=== PATIENT | female | born 1955 | race Caucasian/White ===

== ENCOUNTER 2024-07-12 20:09 | Observation (INO) ==
[2024-07-12] MEDS: Lactated Ringers 1000 ml BAG 1,000 ML IV ONE (20:51)
[2024-07-12 21:08] LABS: ABS Basophils 0.1 10^3/uL (0.0-0.1); ABS Lymphocytes 1.1 10^3/uL (1.0-4.8); ABS Monocytes 1.1 10^3/uL (0.0-0.9); ABS Neutrophils 6.1 10^3/uL (1.5-7.6); ABS Nucleated RBC 0.01 10^3/ul; Eosinophil % 0.4 %; Hematocrit 41.7 % (35-45); Hemoglobin 13.5 g/dL (11.5-14.3); Lymphocyte % 13.4 %; Mean Corpuscular Hemoglobin 28.5 pg (27-33); Mean Corpuscular Hgb Conc 32.3 g/dL (31-36); Mean Corpuscular Volume 88.2 fL (80-97); Mean Platelet Volume 7.7 fL (7.5-11.2); Nucleated Red Blood Cells % 0.1 %/100WBC (0.0-0.8); Platelet Count 357 10^3/uL (150-450); Red Blood Count 4.72 10^6/uL (3.63-4.92); Red Cell Distribution Width 17.7 % (12-17); White Blood Count 8.4 10^3/uL (3.8-11.8)
[2024-07-12 21:17] LABS: INR 1.41 (0.83-1.13)
[2024-07-12 21:52] LABS: Albumin/Globulin Ratio 1.7 (1-3); Calcium 9.2 mg/dL (8.6-10.3); Creatinine, Serum 1.06 mg/dL (0.51-0.95); Globulin 2.3 g/dL (2-4); Potassium 4.1 mmol/L (3.5-5.0); Total Bilirubin 0.4 mg/dL (0.2-1.0); Total Protein 6.3 g/dL (6.4-8.9); eGFR CKD-EPI 56.5 (>60)
[2024-07-12 22:21] LABS: High Sensitivity Troponin 1 Hr 22 pg/mL (<15)
[2024-07-13] MEDS: FLUTICAS/UMECLI/VILANT 200-62.5-25 MDI (NF) INH SCH (07:27)
[2024-07-13 09:31] LABS: Hematocrit 37.8 % (35-45); Hemoglobin 12.4 g/dL (11.5-14.3); Mean Corpuscular Hemoglobin 28.7 pg (27-33); Mean Corpuscular Hgb Conc 32.7 g/dL (31-36); Mean Corpuscular Volume 87.8 fL (80-97); Mean Platelet Volume 7.5 fL (7.5-11.2); Platelet Count 314 10^3/uL (150-450); Red Cell Distribution Width 17.2 % (12-17); White Blood Count 5.6 10^3/uL (3.8-11.8)
[2024-07-13] MEDS: Fluticasone NASAL SPRAY 50MCG 16 gm SPRAY BTL BOTH NARES SCH (09:32)
[2024-07-13 10:09] LABS: Calcium 8.9 mg/dL (8.6-10.3); Creatinine, Serum 0.86 mg/dL (0.51-0.95); Potassium 3.8 mmol/L (3.5-5.0); eGFR CKD-EPI 72.6 (>60)
[2024-07-13 13:18] LABS: High Sensitivity Troponin 1 Hr 16 pg/mL (<15)
[2024-07-13 14:38] VITALS: BP 123/71
== END 2024-07-13 18:25 | disposition home or self-care (01) ==
LOC: ED 20:09 → EDHOLD 20:09 → SUATTDRO 22:46 → MEDTELE 07-13 01:54
PROVIDERS: ADMIT Internal Medicine; ATTEND Family Medicine

== ENCOUNTER 2024-08-15 07:50 | Observation (INO) ==
[2024-08-15 08:15] LABS: ABS Eosinophils 0.3 10^3/uL (0.0-0.5); ABS Lymphocytes 1.4 10^3/uL (1.0-4.8); ABS Monocytes 0.6 10^3/uL (0.0-0.9); Eosinophil % 5.4 %; Hematocrit 43.8 % (35-45); Hemoglobin 14.1 g/dL (11.5-14.3); Lymphocyte % 22.4 %; Mean Corpuscular Hemoglobin 28.5 pg (27-33); Mean Corpuscular Hgb Conc 32.1 g/dL (31-36); Mean Corpuscular Volume 88.6 fL (80-97); Mean Platelet Volume 7.5 fL (7.5-11.2); Platelet Count 360 10^3/uL (150-450); Red Blood Count 4.94 10^6/uL (3.63-4.92); Red Cell Distribution Width 18.2 % (12-17); White Blood Count 6.4 10^3/uL (3.8-11.8)
[2024-08-15] MEDS: Lactated Ringers 1000 ml BAG 1,000 ML IV ONE ×2 (08:21→10:00)
[2024-08-15 08:25] LABS: INR 1.11 (0.85-1.14)
[2024-08-15 09:03] LABS: Albumin 4.3 g/dL (3.2-5.2); Albumin/Globulin Ratio 1.8 (1-3); Calcium 9.2 mg/dL (8.6-10.3); Creatinine, Serum 0.88 mg/dL (0.51-0.95); Globulin 2.4 g/dL (2-4); Potassium 4.2 mmol/L (3.5-5.0); Total Bilirubin 0.4 mg/dL (0.2-1.0); Total Protein 6.7 g/dL (6.4-8.9); eGFR CKD-EPI 70.7 (>60)
[2024-08-15 09:53] LABS: High Sensitivity Troponin 1 Hr 9 pg/mL (<15)
[2024-08-15 10:06] LABS: Urine Appearance Clear; Urine Bilirubin Negative (Negative); Urine Blood Negative (Negative); Urine Color Colorless; Urine Glucose Negative (Negative); Urine Ketones Negative (Negative); Urine Nitrite Negative (Negative); Urine Protein Negative (Negative); Urine Specific Gravity 1.004 (1.002-1.030); Urine Urobilinogen Negative (Negative)
[2024-08-15] MEDS: Metoprolol Tartrate 5 mg VIAL 5 ml VIAL (1 mg/ml) IV ONE ×2 (10:44→11:37)
[2024-08-15 12:21] LABS: High Sensitivity Troponin 3 Hr 8 pg/mL (<15)
[2024-08-15] MEDS: Iohexol 350 (CONTRAST) 500 ML MDV IV ONE (12:29)
[2024-08-15] MEDS: Digoxin IV 0.5 MG/2 ML AMP (0.25 MG/ML) IV SLOW PU ONE (13:04)
[2024-08-15] MEDS ORDERED: Metoprolol Tartrate 5 mg VIAL 5 ml VIAL (1 mg/ml) IV PRN (16:15)
[2024-08-15] MEDS ORDERED: Sulfur Hexaflouride MICROSPHR 25 MG VIAL IV PRN (18:11)
[2024-08-16 06:24] LABS: ABS Eosinophils 0.4 10^3/uL (0.0-0.5); ABS Lymphocytes 1.1 10^3/uL (1.0-4.8); ABS Monocytes 0.7 10^3/uL (0.0-0.9); Hematocrit 37.5 % (35-45); Hemoglobin 11.9 g/dL (11.5-14.3); Mean Corpuscular Hemoglobin 28.2 pg (27-33); Mean Corpuscular Hgb Conc 31.8 g/dL (31-36); Mean Corpuscular Volume 88.6 fL (80-97); Mean Platelet Volume 7.7 fL (7.5-11.2); Nucleated Red Blood Cells % 0.1 %/100WBC (0.0-0.8); Platelet Count 283 10^3/uL (150-450); Red Blood Count 4.23 10^6/uL (3.63-4.92); Red Cell Distribution Width 18.5 % (12-17); White Blood Count 6.2 10^3/uL (3.8-11.8)
[2024-08-16 06:44] LABS: Albumin 3.3 g/dL (3.2-5.2); Albumin/Globulin Ratio 1.7 (1-3); C Reactive Protein 1.35 mg/L (<8.01); Calcium 8.6 mg/dL (8.6-10.3); Creatinine, Serum 0.73 mg/dL (0.51-0.95); Globulin 1.9 g/dL (2-4); HDL Cholesterol 120.6 mg/dL; Magnesium 1.9 mg/dL (1.9-2.7); Phosphorus 4.1 mg/dL (2.5-5.0); Potassium 3.7 mmol/L (3.5-5.0); Total Bilirubin 0.3 mg/dL (0.2-1.0); Total Protein 5.2 g/dL (6.4-8.9); eGFR CKD-EPI 88.4 (>60)
[2024-08-16] MEDS: CMC:FLUTICAS/UMECLI/VILANT 200-62.5-25 MDI (NF) INH SCH (07:41)
[2024-08-17 05:52] LABS: ABS Basophils 0.1 10^3/uL (0.0-0.1); ABS Eosinophils 0.3 10^3/uL (0.0-0.5); ABS Lymphocytes 1.1 10^3/uL (1.0-4.8); ABS Monocytes 0.7 10^3/uL (0.0-0.9); Eosinophil % 4.9 %; Hematocrit 37.8 % (35-45); Hemoglobin 12.2 g/dL (11.5-14.3); Lymphocyte % 17.3 %; Mean Corpuscular Hemoglobin 28.8 pg (27-33); Mean Corpuscular Hgb Conc 32.4 g/dL (31-36); Mean Corpuscular Volume 88.8 fL (80-97); Mean Platelet Volume 7.7 fL (7.5-11.2); Nucleated Red Blood Cells % 0.1 %/100WBC (0.0-0.8); Platelet Count 271 10^3/uL (150-450); Red Blood Count 4.25 10^6/uL (3.63-4.92); Red Cell Distribution Width 17.9 % (12-17); White Blood Count 6.1 10^3/uL (3.8-11.8)
[2024-08-17 06:14] LABS: Calcium 8.6 mg/dL (8.6-10.3); Creatinine, Serum 0.78 mg/dL (0.51-0.95); Potassium 3.7 mmol/L (3.5-5.0); eGFR CKD-EPI 81.7 (>60)
[2024-08-17] MEDS: KCL 20 MEQ/100 ML IVPREMIX 20 MEQ/100 ML BAG IV ONE (08:40)
[2024-08-17] MEDS: Potassium Chloride LIQUID 20 MEQ/15 ML LIQUID PO ONE (09:54)
[2024-08-17 10:56] LABS: Ferritin 13.1 ng/mL (11-307)
[2024-08-17] MEDS ORDERED: Regadenoson 0.4 MG/5 ML SYRINGE ONE (11:05)
[2024-08-17] MEDS ORDERED: Aminophylline 25 MG/ML VIAL ONE (11:05)
[2024-08-17 13:37] VITALS: BP 139/94
== END 2024-08-17 17:42 | disposition home or self-care (01) ==
LOC: ED 07:50 → EDHOLD 07:50 → MEDTELE 16:04
PROVIDERS: ADMIT Internal Medicine; ATTEND Internal Medicine

== ENCOUNTER 2024-10-07 15:18 | Inpatient (IN) ==
[2024-10-07] MEDS: Ondansetron 4 mg VIAL 2 MG/ML 2 ml VIAL IV ONE ×2 (16:04→19:57)
[2024-10-07] MEDS: Lactated Ringers 1000 ml BAG IV.FLUID IV ONE ×3 (16:13→20:00)
[2024-10-07 17:08] LABS: Mean Corpuscular Hemoglobin 28.7 pg (27-33); Mean Corpuscular Hgb Conc 31.2 g/dL (31-36); Mean Corpuscular Volume 91.9 fL (80-97); Mean Platelet Volume 7.4 fL (7.5-11.2); Platelet Count 255 10^3/uL (150-450); Red Blood Count 3.15 10^6/uL (3.63-4.92); Red Cell Distribution Width 16.5 % (12-17); White Blood Count 22.5 10^3/uL (3.8-11.8)
[2024-10-07 17:26] LABS: INR 1.33 (0.85-1.14)
[2024-10-07 17:39] LABS: Albumin 3.4 g/dL (3.2-5.2); Calcium 8.3 mg/dL (8.6-10.3); Creatinine, Serum 1.7 mg/dL (0.51-0.95); Globulin 1.7 g/dL (2-4); Potassium 5.8 mmol/L (3.5-5.0); Total Bilirubin 0.5 mg/dL (0.2-1.0); Total Protein 5.1 g/dL (6.4-8.9); eGFR CKD-EPI 32.1 (>60)
[2024-10-07 17:44] LABS: ABS Basophils 0.1 10^3/uL (0.0-0.1); ABS Lymphocytes 0.5 10^3/uL (1.0-4.8); ABS Monocytes 1.3 10^3/uL (0.0-0.9); ABS Neutrophils 20.6 10^3/uL (1.5-7.6); ABS Nucleated RBC 0.01 10^3/ul; Eosinophil % 0.1 %; Lymphocyte % 2.1 %
[2024-10-07] MEDS: Piperacillin/Tazobac 3.375 BAG 3.375 GM/100 ML BAG IV ONE (18:22)
[2024-10-07 18:47] LABS: High Sensitivity Troponin 1 Hr 313 pg/mL (<15)
[2024-10-07 19:15] LABS: Urine Appearance Clear; Urine Bilirubin Negative (Negative); Urine Blood Negative (Negative); Urine Color Light-Yellow; Urine Glucose Negative (Negative); Urine Ketones Negative (Negative); Urine Nitrite Negative (Negative); Urine Protein Negative (Negative); Urine Specific Gravity 1.008 (1.002-1.030); Urine Urobilinogen Negative (Negative)
[2024-10-07] MEDS: Morphine 4 MG/ML VIAL (1 ml) IV ONE (19:56)
[2024-10-07] MEDS: Vancomycin 1,000 MG in NS 0.9% 250 ml 250 ML IVPB ONE (20:12)
[2024-10-07 21:52] LABS: Calcium 7.5 mg/dL (8.6-10.3); Creatinine, Serum 1.78 mg/dL (0.51-0.95); Potassium 5.8 mmol/L (3.5-5.0); eGFR CKD-EPI 30.3 (>60)
[2024-10-07 21:56] LABS: Albumin/Globulin Ratio 2.1 (1-3); Globulin 1.4 g/dL (2-4); Total Bilirubin 0.8 mg/dL (0.2-1.0); Total Protein 4.4 g/dL (6.4-8.9)
[2024-10-07] MEDS ORDERED: Sulfur Hexaflouride MICROSPHR 25 MG VIAL IV PRN (22:44)
[2024-10-07 22:46] LABS: High Sensitivity Troponin 1 Hr 317 pg/mL (<15)
[2024-10-07 23:51] LABS: TSH Ultra Thyroid Stim Horm 6.21 mcIU/mL (0.34-5.60)
[2024-10-07] MEDS: SODIUM ZIRCONIUM CYCLOSILICATE 10 GM PACKET PO ONE (23:52)
[2024-10-07] MEDS: CALCIUM GLUCONATE 1GM/50ML NS 1 GM/50 ML BAG IV ONE (23:56)
[2024-10-08] MEDS: fentaNYL 100 mcg/2 ml 50 MCG/ML VIAL IV SLOW PU PRN (00:13)
[2024-10-08] MEDS: Ondansetron 4 mg VIAL 2 MG/ML 2 ml VIAL IV PRN ×2 (00:21→09:09)
[2024-10-08 01:50] LABS: Free T4 1.53 ng/dL (0.61-1.12)
[2024-10-08 03:30] LABS: Calcium 7.7 mg/dL (8.6-10.3); Creatinine, Serum 2.18 mg/dL (0.51-0.95); Potassium 5.9 mmol/L (3.5-5.0); eGFR CKD-EPI 23.8 (>60)
[2024-10-08 03:47] LABS: ABS Lymphocytes 0.4 10^3/uL (1.0-4.8); ABS Neutrophils 13.6 10^3/uL (1.5-7.6); ABS Nucleated RBC 0.01 10^3/ul; Eosinophil % 0.1 %; Hematocrit 25.7 % (35-45); Hemoglobin 8.1 g/dL (11.5-14.3); Lymphocyte % 2.6 %; Mean Corpuscular Hemoglobin 28.4 pg (27-33); Mean Corpuscular Hgb Conc 31.7 g/dL (31-36); Mean Corpuscular Volume 89.7 fL (80-97); Mean Platelet Volume 8.5 fL (7.5-11.2); Platelet Count 237 10^3/uL (150-450); Red Blood Count 2.86 10^6/uL (3.63-4.92); Red Cell Distribution Width 16.3 % (12-17)
[2024-10-08 03:57] LABS: Albumin 3.1 g/dL (3.2-5.2); Albumin/Globulin Ratio 2.2 (1-3); Globulin 1.4 g/dL (2-4); Magnesium 1.9 mg/dL (1.9-2.7); Total Bilirubin 0.9 mg/dL (0.2-1.0); Total Protein 4.5 g/dL (6.4-8.9)
[2024-10-08] MEDS: Dextrose 50% Syringe 50 ml 25 GM/50 ML SYRINGE IV PUSH ONE ×2 (05:35→12:48)
[2024-10-08] MEDS: Lactated Ringers 1000 ml BAG 1,000 ML IV SCH (05:48)
[2024-10-08 07:52] LABS: C Reactive Protein 29.09 mg/L (<8.01)
[2024-10-08] MEDS ORDERED: Rosuvastatin 40 mg TAB (NF) PO SCH (09:00)
[2024-10-08] MEDS: cefTRIAXone 1 gm/50 mL D5W 1 GM/50 ML BAG IV SCH (09:35)
[2024-10-08] MEDS: HYDROmorphone 0.5 MG/0.5 ML SYRINGE IV SLOW PU PRN (10:35)
[2024-10-08] MEDS ORDERED: cefTRIAXone 1 gm/50 mL D5W 1 GM/50 ML BAG IV SCH (11:00)
[2024-10-08] MEDS: Fluticasone NASAL SPRAY 50MCG 16 gm SPRAY BTL BOTH NARES SCH (11:25)
[2024-10-08 11:55] LABS: Calcium 7.5 mg/dL (8.6-10.3); Creatinine, Serum 2.69 mg/dL (0.51-0.95); Potassium 6.3 mmol/L (3.5-5.0); eGFR CKD-EPI 18.5 (>60)
[2024-10-08] MEDS: SODIUM ZIRCONIUM CYCLOSILICATE 10 GM PACKET PO ONE (12:14)
[2024-10-08] MEDS: Furosemide 40 mg/4 ml IV VIAL IV ONE (14:20)
[2024-10-08] MEDS: Prochlorperazine 5 mg/ml 2 ml VIAL (10 mg) IV PRN (14:32)
[2024-10-08] MEDS: FLUTICAS/UMECLI/VILANT 200-62.5-25 MDI (NF) INH SCH (14:37)
[2024-10-08 17:16] LABS: Hematocrit 22.6 % (35-45); Hemoglobin 7.2 g/dL (11.5-14.3); Mean Corpuscular Hemoglobin 28.9 pg (27-33); Mean Corpuscular Volume 90.1 fL (80-97); Mean Platelet Volume 8.5 fL (7.5-11.2); Platelet Count 217 10^3/uL (150-450); Red Cell Distribution Width 16.1 % (12-17); White Blood Count 16.4 10^3/uL (3.8-11.8)
[2024-10-08 17:57] LABS: Calcium 7.6 mg/dL (8.6-10.3); Creatinine, Serum 3.21 mg/dL (0.51-0.95); Potassium 5.9 mmol/L (3.5-5.0)
[2024-10-08 18:16] LABS: Albumin 2.8 g/dL (3.2-5.2); Albumin/Globulin Ratio 1.8 (1-3); Globulin 1.6 g/dL (2-4); Total Bilirubin 0.5 mg/dL (0.2-1.0); Total Protein 4.4 g/dL (6.4-8.9)
[2024-10-08] MEDS: Sodium Polystyrene ORAL.SUSP 15 GM/60 ML BTL PO ONE (18:19)
[2024-10-08 22:46] LABS: Calcium 7.4 mg/dL (8.6-10.3); Creatinine, Serum 3.56 mg/dL (0.51-0.95); eGFR CKD-EPI 13.2 (>60)
[2024-10-09] MEDS: Dextrose 50% Syringe 50 ml 25 GM/50 ML SYRINGE IV PUSH ONE
[2024-10-09] MEDS: Dextrose 50% Syringe 50 ml 25 GM/50 ML SYRINGE ONE (00:03)
[2024-10-09] MEDS: Calcium Gluconate 1 GM/10 ML VIAL (in Pyxis) IV PUSH ONE (00:54)
[2024-10-09] MEDS: Sodium Polystyrene ORAL.SUSP 15 GM/60 ML BTL PO ONE ×2 (00:54→11:07)
[2024-10-09 04:38] LABS: Hematocrit 21.9 % (35-45); Hemoglobin 7.1 g/dL (11.5-14.3); Mean Corpuscular Hemoglobin 28.9 pg (27-33); Mean Corpuscular Hgb Conc 32.4 g/dL (31-36); Mean Platelet Volume 8.6 fL (7.5-11.2); Platelet Count 200 10^3/uL (150-450); Red Blood Count 2.46 10^6/uL (3.63-4.92); Red Cell Distribution Width 16.4 % (12-17)
[2024-10-09 05:10] LABS: Calcium 7.5 mg/dL (8.6-10.3); Creatinine, Serum 3.9 mg/dL (0.51-0.95); Magnesium 1.9 mg/dL (1.9-2.7); Potassium 5.2 mmol/L (3.5-5.0); eGFR CKD-EPI 11.8 (>60)
[2024-10-09 05:46] LABS: ABS Lymphocytes 0.9 10^3/uL (1.0-4.8); ABS Monocytes 1.3 10^3/uL (0.0-0.9); ABS Neutrophils 12.7 10^3/uL (1.5-7.6); ABS Nucleated RBC 0.02 10^3/ul; Anisocytosis 1+; Eosinophil % 0.2 %; Lymphocyte % 5.9 %; Nucleated Red Blood Cells % 0.1 %/100WBC (0.0-0.8)
[2024-10-09] MEDS ORDERED: Heparin 5000 UNITS/ML 1 mL VIAL SUBCUT SCH (09:00)
[2024-10-09] MEDS: Heparin 5000 UNITS/ML 1 mL VIAL SUBCUT SCH (09:04)
[2024-10-09 16:49] LABS: Hemoglobin 6.3 g/dL (11.5-14.3)
[2024-10-09 16:50] LABS: Hematocrit 19.8 % (35-45); Mean Corpuscular Hemoglobin 28.5 pg (27-33); Mean Corpuscular Hgb Conc 32.1 g/dL (31-36); Mean Corpuscular Volume 88.7 fL (80-97); Mean Platelet Volume 8.2 fL (7.5-11.2); Platelet Count 203 10^3/uL (150-450); Red Blood Count 2.23 10^6/uL (3.63-4.92); Red Cell Distribution Width 16.4 % (12-17); White Blood Count 12.2 10^3/uL (3.8-11.8)
[2024-10-09 17:16] LABS: Anion Gap 17 mmol/L (2-16); Blood Urea Nitrogen 66 mg/dL (6-24); CO2 Carbon Dioxide 21 mmol/L (22-32); Calcium 6.5 mg/dL (8.6-10.3); Chloride 95 mmol/L (101-111); Creatinine, Serum 4.74 mg/dL (0.51-0.95); Glucose 115 mg/dL (70-100); Potassium 4.7 mmol/L (3.5-5.0); Sodium 133 mmol/L (135-145); eGFR CKD-EPI 9.4 (>60)
[2024-10-09 17:25] LABS: Immature Retic Fraction 0.61
[2024-10-09 17:26] LABS: % Iron Saturation 8 % (15-55); .Transferrin 185 mg/dL (203-362); Iron < 20 ug/dL (50-212); LDH 385 U/L (140-271); Total Iron Binding Capacity 259 mcg/dL (250-450); Unsaturated Iron Binding 239 ug/dL
[2024-10-09 17:46] LABS: Ferritin 144.7 ng/mL (11-307)
[2024-10-09 17:47] LABS: Corrected Retic Count 1.5 % (0.5-2.2); Hematocrit for Retic CNT 19.8 % (35-45); RBC Retic Count 2.23 10^6/ul (3.63-4.92)
[2024-10-09] MEDS: Senna TAB 8.6 mg TAB PO PRN (20:18)
[2024-10-09] MEDS: Ferric Gluconate IV 250 MG in NS 0.9% 250 ml 200 ML IVPB SCH (20:19)
[2024-10-09] MEDS: Polyethylene Glycol 3350 17 GM PACKET PO SCH (20:30)
[2024-10-10 01:58] LABS: Hematocrit 23.6 % (35-45); Hemoglobin 7.6 g/dL (11.5-14.3); Red Blood Count 2.65 10^6/uL (3.63-4.92); White Blood Count 13.1 10^3/uL (3.8-11.8)
[2024-10-10 01:59] LABS: Mean Corpuscular Hemoglobin 28.8 pg (27-33); Mean Corpuscular Hgb Conc 32.3 g/dL (31-36); Mean Corpuscular Volume 89.1 fL (80-97); Mean Platelet Volume 8.4 fL (7.5-11.2); Platelet Count 179 10^3/uL (150-450); Red Cell Distribution Width 15.8 % (12-17)
[2024-10-10 02:11] LABS: Creatinine, Serum 5.06 mg/dL (0.51-0.95); Potassium 4.6 mmol/L (3.5-5.0); eGFR CKD-EPI 8.7 (>60)
[2024-10-10 02:12] LABS: Calcium 6.2 mg/dL (8.6-10.3)
[2024-10-10] MEDS: CALCIUM GLUCONATE 1GM/50ML NS 1 GM/50 ML BAG IV SCH (02:44)
[2024-10-10 06:13] LABS: Hematocrit 23.1 % (35-45); Hemoglobin 7.6 g/dL (11.5-14.3); Mean Corpuscular Hemoglobin 29.5 pg (27-33); Mean Corpuscular Hgb Conc 32.8 g/dL (31-36); Mean Platelet Volume 8.3 fL (7.5-11.2); Platelet Count 175 10^3/uL (150-450); Red Blood Count 2.57 10^6/uL (3.63-4.92); Red Cell Distribution Width 15.8 % (12-17); White Blood Count 11.2 10^3/uL (3.8-11.8)
[2024-10-10 07:03] LABS: Albumin 2.5 g/dL (3.2-5.2); Albumin/Globulin Ratio 1.5 (1-3); Calcium 6.4 mg/dL (8.6-10.3); Creatinine, Serum 5.33 mg/dL (0.51-0.95); Globulin 1.7 g/dL (2-4); Magnesium 1.8 mg/dL (1.9-2.7); Potassium 4.4 mmol/L (3.5-5.0); Total Bilirubin 0.3 mg/dL (0.2-1.0); Total Protein 4.2 g/dL (6.4-8.9); eGFR CKD-EPI 8.1 (>60)
[2024-10-10 09:31] LABS: ABS Eosinophils 0.1 10^3/uL (0.0-0.5); ABS Lymphocytes 0.7 10^3/uL (1.0-4.8); ABS Neutrophils 9.4 10^3/uL (1.5-7.6); ABS Nucleated RBC 0.02 10^3/ul; Anisocytosis 1+; Eosinophil % 0.5 %; Lymphocyte % 6.3 %; Macrocytosis 2+; Nucleated Red Blood Cells % 0.2 %/100WBC (0.0-0.8)
[2024-10-10] MEDS: Bumetanide IV 0.25 MG/ML 4 ml VIAL (1 mg) IV SLOW PU ONE (11:20)
[2024-10-10] MEDS: Calcium Gluconate 2 GM in NS 0.9% 100 ml BAG 100 ML IVPB ONE (11:54)
[2024-10-10] MEDS: HYDROmorphone 1 MG/1 ML SYRINGE IV SLOW PU PRN (17:39)
[2024-10-11 00:45] LABS: Hematocrit 24.6 % (35-45); Hemoglobin 8.2 g/dL (11.5-14.3)
[2024-10-11 08:58] LABS: Hematocrit 25.9 % (35-45); Hemoglobin 8.6 g/dL (11.5-14.3); Mean Corpuscular Hemoglobin 29.9 pg (27-33); Mean Corpuscular Hgb Conc 33.1 g/dL (31-36); Mean Corpuscular Volume 90.4 fL (80-97); Mean Platelet Volume 8.3 fL (7.5-11.2); Platelet Count 201 10^3/uL (150-450); Red Blood Count 2.87 10^6/uL (3.63-4.92); Red Cell Distribution Width 16.4 % (12-17); White Blood Count 10.5 10^3/uL (3.8-11.8)
[2024-10-11 09:25] LABS: Albumin 2.6 g/dL (3.2-5.2); Albumin/Globulin Ratio 1.4 (1-3); Calcium 6.2 mg/dL (8.6-10.3); Creatinine, Serum 6.15 mg/dL (0.51-0.95); Globulin 1.9 g/dL (2-4); Magnesium 1.9 mg/dL (1.9-2.7); Potassium 5.1 mmol/L (3.5-5.0); Total Bilirubin 0.4 mg/dL (0.2-1.0); Total Protein 4.5 g/dL (6.4-8.9); eGFR CKD-EPI 6.9 (>60)
[2024-10-11] MEDS ORDERED: Polyethylene Glycol 3350 17 GM PACKET PO PRN (09:41)
[2024-10-11 10:23] LABS: ABS Eosinophils 0.1 10^3/uL (0.0-0.5); ABS Lymphocytes 0.7 10^3/uL (1.0-4.8); ABS Monocytes 0.1 10^3/uL (0.0-0.9); ABS Neutrophils 9.6 10^3/uL (1.5-7.6); ABS Nucleated RBC 0.21 10^3/ul; Eosinophil % 0.6 %; Large Platelets Present; Lymphocyte % 6.7 %; Polychromasia 1+
[2024-10-11 11:36] LABS: Phosphorus 12.5 mg/dL (2.5-5.0)
[2024-10-11] MEDS: Bumetanide IV 0.25 MG/ML 4 ml VIAL (1 mg) IV SLOW PU ONE ×3 (12:25→19:51)
[2024-10-11] MEDS: Albuterol HFA INHALER 8 gm MDI INH PRN (13:23)
[2024-10-11] MEDS ORDERED: Bumetanide IV 0.25 MG/ML 4 ml VIAL (1 mg) IV SLOW PU ONE (18:07)
[2024-10-11 20:48] LABS: Hematocrit 24.8 % (35-45); Mean Corpuscular Hemoglobin 29.3 pg (27-33); Mean Corpuscular Hgb Conc 32.4 g/dL (31-36); Mean Corpuscular Volume 90.6 fL (80-97); Mean Platelet Volume 8.1 fL (7.5-11.2); Platelet Count 194 10^3/uL (150-450); Red Blood Count 2.74 10^6/uL (3.63-4.92); Red Cell Distribution Width 16.4 % (12-17); White Blood Count 15.3 10^3/uL (3.8-11.8)
[2024-10-11 21:45] LABS: Albumin 2.5 g/dL (3.2-5.2); Albumin/Globulin Ratio 1.3 (1-3); Calcium 6.3 mg/dL (8.6-10.3); Creatinine, Serum 6.3 mg/dL (0.51-0.95); Globulin 1.9 g/dL (2-4); Magnesium 1.9 mg/dL (1.9-2.7); Potassium 5.3 mmol/L (3.5-5.0); Total Bilirubin 0.4 mg/dL (0.2-1.0); Total Protein 4.4 g/dL (6.4-8.9); eGFR CKD-EPI 6.7 (>60)
[2024-10-11] MEDS ORDERED: Dextrose 50% Syringe 50 ml 25 GM/50 ML SYRINGE PRN (22:18)
[2024-10-11 22:23] LABS: Venous Bicarbonate HCO3 17.4 mmol/L (24-28)
[2024-10-11] MEDS: Dextrose 50% Syringe 50 ml 25 GM/50 ML SYRINGE PRN (22:28)
[2024-10-11] MEDS: Dextrose 50% Syringe 50 ml 25 GM/50 ML SYRINGE ONE (22:31)
[2024-10-11] MEDS: Sodium Bicarbonate 8.4% SYR 50 ml SYRINGE IV ONE (23:19)
[2024-10-12] MEDS: Bumetanide 10 MG/40 ML IV DRIP IV SCH (00:25)
[2024-10-12] MEDS: Bumetanide IV 10 MG in Premix IV 0 ML IV SCH (04:24)
[2024-10-12 04:34] LABS: Hematocrit 21.8 % (35-45); Hemoglobin 7.2 g/dL (11.5-14.3); Mean Corpuscular Hemoglobin 29.6 pg (27-33); Mean Corpuscular Hgb Conc 33.1 g/dL (31-36); Mean Corpuscular Volume 89.4 fL (80-97); Mean Platelet Volume 8.6 fL (7.5-11.2); Platelet Count 182 10^3/uL (150-450); Red Blood Count 2.44 10^6/uL (3.63-4.92); Red Cell Distribution Width 16.7 % (12-17); White Blood Count 22.4 10^3/uL (3.8-11.8)
[2024-10-12 04:50] LABS: ABS Lymphocytes 0.5 10^3/uL (1.0-4.8); ABS Neutrophils 21.8 10^3/uL (1.5-7.6); ABS Nucleated RBC 0.08 10^3/ul; Anisocytosis 1+; Eosinophil % 0.1 %; Lymphocyte % 2.3 %; Nucleated Red Blood Cells % 0.4 %/100WBC (0.0-0.8); Polychromasia 1+; Toxic Granulation 1+
[2024-10-12 05:13] LABS: Albumin 2.2 g/dL (3.2-5.2); Albumin/Globulin Ratio 1.2 (1-3); Calcium 6.5 mg/dL (8.6-10.3); Creatinine, Serum 6.46 mg/dL (0.51-0.95); Globulin 1.8 g/dL (2-4); Magnesium 1.9 mg/dL (1.9-2.7); Potassium 5.1 mmol/L (3.5-5.0); Total Bilirubin 0.3 mg/dL (0.2-1.0); eGFR CKD-EPI 6.5 (>60)
[2024-10-12] MEDS: Sodium Chloride 3% HYPERTONIC 120 ML IV ONE (10:03)
[2024-10-12] MEDS: D10W 1000 ml BAG 1,000 ML IV SCH ×2 (10:16→10:51)
[2024-10-12] MEDS: Clindamycin 600 MG/D5W BAG 600 MG/50 ML BAG IV ONE (10:26)
[2024-10-12] MEDS ORDERED: Midazolam 5 mg/5 ml VIAL 1 mg/ml 5 ml VIAL (5 mg) ONE (11:28)
[2024-10-12] MEDS ORDERED: Flumazenil 0.5 mg/5 ml 0.1 MG/ML 5 ml VIAL ONE (11:28)
[2024-10-12] MEDS ORDERED: fentaNYL 100 mcg/2 ml 50 MCG/ML VIAL ONE ×2 (11:28→11:29)
[2024-10-12] MEDS ORDERED: Naloxone 0.4 mg VIAL 0.4 mg/ml 1 ml VIAL ONE (11:28)
[2024-10-12] MEDS: cefTRIAXone 1 gm/50 mL D5W 1 GM/50 ML BAG IV SCH (11:34)
[2024-10-12] MEDS ORDERED: Heparin 5000 UNITS/ML 1 mL VIAL ONE (11:39)
[2024-10-12] MEDS ORDERED: Lidocaine 1% VIAL 10 MG/ML 30 ML VIAL ONE (11:39)
[2024-10-12] MEDS ORDERED: Heparin 2 UNITS/ML IVPREMIX 1,000 UNIT/500 ML BAG IV ONE (11:39)
[2024-10-12] MEDS ORDERED: CLINDAMYCIN ONE (11:42)
[2024-10-12] MEDS ORDERED: SODIUM CHLORIDE ONE (11:42)
[2024-10-12] MEDS ORDERED: Heparin 1,000 UNIT/ML 10 ml (10,000 UNITS) CATHLAB/DIALYSIS ONE (11:52)
[2024-10-12] MEDS ORDERED: Lidocaine 1% MPF 5 ML VIAL ONE (11:52)
[2024-10-12] MEDS ORDERED: Iohexol 350 (CONTRAST) 100 ML PAK IV ONE (11:53)
[2024-10-12] MEDS ORDERED: Heparin 2 UNITS/ML IVPREMIX 3,000 UNIT/1,500 ML BAG IV ONE (11:53)
[2024-10-12 11:54] LABS: Hepatitis B Surface Antigen Nonreactive (Nonreactive)
[2024-10-12 12:11] LABS: Hepatitis B Surface Ab Not Immune (Immune)
[2024-10-12] MEDS ORDERED: NS 0.9% 1000 ml BAG 100 ML IV PRN (14:24)
[2024-10-12] MEDS ORDERED: NS 0.9% 1000 ml BAG 200 ML IV PRN (14:24)
[2024-10-12] MEDS: Pantoprazole VIAL 40 MG VIAL IV SCH (15:19)
[2024-10-12] MEDS: Heparin 1,000 UNIT/ML 10 ml (10,000 UNITS) CATHLAB/DIALYSIS DIALYSIS PRN (15:33)
[2024-10-12 15:54] LABS: Calcium 6.2 mg/dL (8.6-10.3); Creatinine, Serum 6.6 mg/dL (0.51-0.95); Potassium 4.7 mmol/L (3.5-5.0); eGFR CKD-EPI 6.3 (>60)
[2024-10-12 16:19] LABS: Hepatitis B Surface Antigen Nonreactive (Nonreactive)
[2024-10-12 18:02] LABS: Calcium 7.4 mg/dL (8.6-10.3); Creatinine, Serum 0.99 mg/dL (0.51-0.95); Potassium 1.9 mmol/L (3.5-5.0); eGFR CKD-EPI 61.3 (>60)
[2024-10-12 21:42] LABS: Calcium 6.5 mg/dL (8.6-10.3); Creatinine, Serum 3.86 mg/dL (0.51-0.95); Potassium 3.3 mmol/L (3.5-5.0)
[2024-10-13 05:16] LABS: Hematocrit 19.9 % (35-45); Hemoglobin 6.4 g/dL (11.5-14.3); Mean Corpuscular Hgb Conc 32.2 g/dL (31-36); Mean Corpuscular Volume 89.8 fL (80-97); Mean Platelet Volume 8.1 fL (7.5-11.2); Platelet Count 163 10^3/uL (150-450); Red Blood Count 2.21 10^6/uL (3.63-4.92); Red Cell Distribution Width 16.7 % (12-17); White Blood Count 28.7 10^3/uL (3.8-11.8)
[2024-10-13 05:43] LABS: Albumin/Globulin Ratio 1.1 (1-3); Calcium 6.5 mg/dL (8.6-10.3); Creatinine, Serum 4.39 mg/dL (0.51-0.95); Globulin 1.8 g/dL (2-4); Magnesium 1.7 mg/dL (1.9-2.7); Potassium 3.5 mmol/L (3.5-5.0); Total Bilirubin 0.3 mg/dL (0.2-1.0); Total Protein 3.8 g/dL (6.4-8.9); eGFR CKD-EPI 10.3 (>60)
[2024-10-13 06:20] LABS: ABS Eosinophils 0.1 10^3/uL (0.0-0.5); ABS Lymphocytes 0.5 10^3/uL (1.0-4.8); ABS Monocytes 1.6 10^3/uL (0.0-0.9); ABS Neutrophils 26.5 10^3/uL (1.5-7.6); ABS Nucleated RBC 0.05 10^3/ul; Anisocytosis 2+; Eosinophil % 0.3 %; Lymphocyte % 1.7 %; Nucleated Red Blood Cells % 0.2 %/100WBC (0.0-0.8); Polychromasia 1+; Toxic Granulation 2+
[2024-10-13] MEDS: CALCIUM GLUCONATE 1GM/50ML NS 1 GM/50 ML BAG IV ONE (06:39)
[2024-10-13] MEDS: Magnesium Sulfate 2 gm BAG 2 GM/50 ML BAG IVPB ONE (06:41)
[2024-10-13] MEDS: STERILE WATER FOR INJ IV SCH (10:46)
[2024-10-13] MEDS: WATER IV SCH (10:46)
[2024-10-13] MEDS: DEXTROSE 50% IV SCH (10:46)
[2024-10-13] MEDS: Albumin Human 25% 25 GM/100 ML BTL IV PRN (13:48)
[2024-10-13] MEDS: metroNIDAZOLE IV 500 MG/100ML 500 MG/100 ML BAG IVPB SCH ×2 (15:33→16:51)
[2024-10-13] MEDS: Heparin 5000 UNITS/ML 1 mL VIAL SUBCUT SCH (16:05)
[2024-10-13 16:41] LABS: Urine Appearance Turbid; Urine Bilirubin Negative (Negative); Urine Blood 2+ (Negative); Urine Color Yellow; Urine Glucose Negative (Negative); Urine Ketones Negative (Negative); Urine Nitrite Negative (Negative); Urine Protein 1+ (>=30 mg/dL) (Negative); Urine Urobilinogen Negative (Negative); Urine pH 5.5 (5.0-8.0)
[2024-10-13 16:47] LABS: Urine Bacteria 1+ /HPF (Absent); Urine Red Blood Cell 3+(>10/hpf) /HPF (0-Trace); Urine Renal Epithelial Cells Present /HPF (Absent); Urine Transitional Epithelial Present /HPF (Absent); Urine White Blood Cell 3+(>20/hpf) /HPF (0-Trace)
[2024-10-13 17:11] LABS: Kappa Free Light Chain 4.21 mg/dL; Lambda Free Light Chain, S 2.71 mg/dL
[2024-10-13 17:29] LABS: Hematocrit 21.6 % (35-45); Hemoglobin 7.1 g/dL (11.5-14.3); Mean Corpuscular Hemoglobin 29.6 pg (27-33); Mean Corpuscular Hgb Conc 33.1 g/dL (31-36); Mean Corpuscular Volume 89.5 fL (80-97); Mean Platelet Volume 8.3 fL (7.5-11.2); Platelet Count 144 10^3/uL (150-450); Red Blood Count 2.41 10^6/uL (3.63-4.92); Red Cell Distribution Width 16.2 % (12-17); White Blood Count 26.2 10^3/uL (3.8-11.8)
[2024-10-13 18:17] LABS: Calcium 7.1 mg/dL (8.6-10.3); Creatinine, Serum 1.94 mg/dL (0.51-0.95); Potassium 3.1 mmol/L (3.5-5.0); eGFR CKD-EPI 27.4 (>60)
[2024-10-13] MEDS: Potassium Chlor 20 meq TAB.ER PO ONE (22:30)
[2024-10-13 22:53] LABS: Magnesium 1.6 mg/dL (1.9-2.7)
[2024-10-14] MEDS: Heparin 5000 UNITS/ML 1 mL VIAL SUBCUT SCH (00:32)
[2024-10-14] MEDS: Magnesium Sulfate 2 gm BAG 2 GM/50 ML BAG IVPB ONE (01:55)
[2024-10-14 04:57] LABS: Hematocrit 21.6 % (35-45); Hemoglobin 7.1 g/dL (11.5-14.3); Mean Corpuscular Hemoglobin 29.4 pg (27-33); Mean Corpuscular Hgb Conc 32.8 g/dL (31-36); Mean Corpuscular Volume 89.6 fL (80-97); Platelet Count 134 10^3/uL (150-450); Red Blood Count 2.41 10^6/uL (3.63-4.92); Red Cell Distribution Width 15.9 % (12-17); White Blood Count 25.1 10^3/uL (3.8-11.8)
[2024-10-14 05:19] LABS: Albumin 2.4 g/dL (3.2-5.2); Albumin/Globulin Ratio 1.2 (1-3); Calcium 7.4 mg/dL (8.6-10.3); Creatinine, Serum 2.42 mg/dL (0.51-0.95); Magnesium 2.4 mg/dL (1.9-2.7); Phosphorus 4.2 mg/dL (2.5-5.0); Potassium 2.5 mmol/L (3.5-5.0); Total Bilirubin 0.3 mg/dL (0.2-1.0); Total Protein 4.4 g/dL (6.4-8.9)
[2024-10-14] MEDS: KCL 20 MEQ/100 ML IVPREMIX 20 MEQ/100 ML BAG IV SCH (05:40)
[2024-10-14] MEDS: DEXTROSE 50% IV SCH (05:45)
[2024-10-14] MEDS: STERILE WATER FOR INJ IV SCH (05:45)
[2024-10-14] MEDS: WATER IV SCH (05:45)
[2024-10-14 06:35] LABS: INR 1.16 (0.85-1.14)
[2024-10-14 06:58] LABS: ABS Eosinophils 0.2 10^3/uL (0.0-0.5); ABS Lymphocytes 0.7 10^3/uL (1.0-4.8); ABS Monocytes 0.8 10^3/uL (0.0-0.9); ABS Neutrophils 23.5 10^3/uL (1.5-7.6); ABS Nucleated RBC 0.02 10^3/ul; Eosinophil % 0.6 %; Lymphocyte % 2.7 %; Nucleated Red Blood Cells % 0.1 %/100WBC (0.0-0.8)
[2024-10-14] MEDS: Bumetanide IV 0.25 MG/ML 4 ml VIAL (1 mg) IV SLOW PU SCH (13:00)
[2024-10-14 15:08] LABS: Flag, M-protein Isotype Negative (Negative); Immunoglobulin A (IgA), S 68 mg/dL (61 - 356); Immunoglobulin G (IgG), S 300 mg/dL (767 - 1590); Immunoglobulin M (IgM), S 49 mg/dL (37 - 286)
[2024-10-14 18:53] LABS: Creatinine, Serum 1.61 mg/dL (0.51-0.95); Potassium 3.1 mmol/L (3.5-5.0); eGFR CKD-EPI 34.2 (>60)
[2024-10-15 04:35] LABS: Hematocrit 24.2 % (35-45); Hemoglobin 8.1 g/dL (11.5-14.3); Mean Corpuscular Hgb Conc 33.3 g/dL (31-36); Mean Platelet Volume 8.1 fL (7.5-11.2); Platelet Count 132 10^3/uL (150-450); Red Blood Count 2.69 10^6/uL (3.63-4.92); Red Cell Distribution Width 16.2 % (12-17); White Blood Count 24.9 10^3/uL (3.8-11.8)
[2024-10-15 04:49] LABS: INR 1.54 (0.85-1.14)
[2024-10-15 06:29] LABS: Calcium 7.4 mg/dL (8.6-10.3); Creatinine, Serum 1.96 mg/dL (0.51-0.95); Magnesium 1.5 mg/dL (1.9-2.7); Potassium 2.9 mmol/L (3.5-5.0)
[2024-10-15 06:56] LABS: ABS Eosinophils 0.1 10^3/uL (0.0-0.5); ABS Lymphocytes 0.9 10^3/uL (1.0-4.8); ABS Monocytes 0.8 10^3/uL (0.0-0.9); ABS Nucleated RBC 0.01 10^3/ul; Eosinophil % 0.6 %; Lymphocyte % 3.5 %
[2024-10-15] MEDS: Magnesium Sulf 4 GM/100 ML IV 4,000 MG/100 ML BAG IVPB ONE ×2 (08:03→17:50)
[2024-10-15] MEDS: Potassium Chlor 20 meq TAB.ER PO SCH (10:50)
[2024-10-15] MEDS: Magnesium Sulfate 2 gm BAG 2 GM/50 ML BAG IVPB ONE (11:07)
[2024-10-15] MEDS ORDERED: Benzocaine/Menthol LOZ PO PRN (13:02)
[2024-10-15] MEDS: Cefepime 1 GM in Dextrose 1 GM/50 ML BAG IV SCH (13:10)
[2024-10-15 14:55] LABS: Calcium 7.3 mg/dL (8.6-10.3); Creatinine, Serum 1.44 mg/dL (0.51-0.95); Potassium 3.3 mmol/L (3.5-5.0); eGFR CKD-EPI 39.1 (>60)
[2024-10-15 17:02] LABS: C Reactive Protein 202.5 mg/L (<8.01)
[2024-10-16 05:44] LABS: Hematocrit 25.4 % (35-45); Hemoglobin 8.2 g/dL (11.5-14.3); Mean Corpuscular Hemoglobin 29.5 pg (27-33); Mean Corpuscular Hgb Conc 32.3 g/dL (31-36); Mean Corpuscular Volume 91.5 fL (80-97); Mean Platelet Volume 8.5 fL (7.5-11.2); Platelet Count 146 10^3/uL (150-450); Red Blood Count 2.77 10^6/uL (3.63-4.92); Red Cell Distribution Width 16.5 % (12-17); White Blood Count 21.9 10^3/uL (3.8-11.8)
[2024-10-16 05:49] LABS: INR 1.6 (0.85-1.14)
[2024-10-16 06:17] LABS: Calcium 7.5 mg/dL (8.6-10.3); Creatinine, Serum 1.92 mg/dL (0.51-0.95); Magnesium 2.2 mg/dL (1.9-2.7); Potassium 4.1 mmol/L (3.5-5.0); eGFR CKD-EPI 27.7 (>60)
[2024-10-16 07:17] LABS: ABS Eosinophils 0.1 10^3/uL (0.0-0.5); ABS Lymphocytes 0.8 10^3/uL (1.0-4.8); ABS Neutrophils 19.9 10^3/uL (1.5-7.6); ABS Nucleated RBC 0.02 10^3/ul; Eosinophil % 0.5 %; Lymphocyte % 3.6 %; Nucleated Red Blood Cells % 0.1 %/100WBC (0.0-0.8)
[2024-10-16] MEDS: DEXTROSE 50% IV SCH (10:03)
[2024-10-16] MEDS: STERILE WATER FOR INJ IV SCH (10:03)
[2024-10-16] MEDS: WATER IV SCH (10:03)
[2024-10-16] MEDS: HYDROmorphone 0.5 MG/0.5 ML SYRINGE IV SLOW PU PRN (14:46)
[2024-10-16] MEDS: HYDROmorphone 1 MG/1 ML SYRINGE IV SLOW PU PRN (19:44)
[2024-10-16 23:42] LABS: Calcium 7.4 mg/dL (8.6-10.3); Creatinine, Serum 1.64 mg/dL (0.51-0.95); Magnesium 1.7 mg/dL (1.9-2.7); Potassium 3.6 mmol/L (3.5-5.0); eGFR CKD-EPI 33.5 (>60)
[2024-10-17 05:56] LABS: Hematocrit 26.7 % (35-45); Hemoglobin 8.7 g/dL (11.5-14.3); Mean Corpuscular Hgb Conc 32.8 g/dL (31-36); Mean Corpuscular Volume 91.6 fL (80-97); Mean Platelet Volume 8.6 fL (7.5-11.2); Platelet Count 200 10^3/uL (150-450); Red Blood Count 2.91 10^6/uL (3.63-4.92); Red Cell Distribution Width 16.7 % (12-17); White Blood Count 21.8 10^3/uL (3.8-11.8)
[2024-10-17 06:37] LABS: Calcium 7.9 mg/dL (8.6-10.3); Creatinine, Serum 1.73 mg/dL (0.51-0.95); Magnesium 1.7 mg/dL (1.9-2.7); Potassium 3.5 mmol/L (3.5-5.0); eGFR CKD-EPI 31.2 (>60)
[2024-10-17 08:14] LABS: ABS Eosinophils 0.1 10^3/uL (0.0-0.5); ABS Lymphocytes 1.2 10^3/uL (1.0-4.8); ABS Monocytes 1.2 10^3/uL (0.0-0.9); ABS Neutrophils 19.4 10^3/uL (1.5-7.6); ABS Nucleated RBC 0.01 10^3/ul; Eosinophil % 0.5 %; Lymphocyte % 5.4 %; Nucleated Red Blood Cells % 0.1 %/100WBC (0.0-0.8); RBC Morphology Normal (Normal)
[2024-10-17] MEDS: KCL 20 MEQ/100 ML IVPREMIX 20 MEQ/100 ML BAG IV SCH (10:27)
[2024-10-17] MEDS: Magnesium Sulfate IV 1GM/100ML 1 GM/100 ML BAG IV ONE (10:34)
[2024-10-17] MEDS: Magnesium Sulfate 2 gm BAG 2 GM/50 ML BAG IVPB ONE (12:41)
[2024-10-17] MEDS: Bumetanide IV 0.25 MG/ML 4 ml VIAL (1 mg) IV SLOW PU SCH (15:18)
[2024-10-18 08:31] LABS: Hemoglobin 8.2 g/dL (11.5-14.3); Mean Corpuscular Hemoglobin 30.1 pg (27-33); Mean Corpuscular Hgb Conc 32.7 g/dL (31-36); Mean Corpuscular Volume 92.2 fL (80-97); Mean Platelet Volume 8.6 fL (7.5-11.2); Platelet Count 232 10^3/uL (150-450); Red Blood Count 2.71 10^6/uL (3.63-4.92); Red Cell Distribution Width 16.7 % (12-17); White Blood Count 16.9 10^3/uL (3.8-11.8)
[2024-10-18 08:34] LABS: Calcium 7.8 mg/dL (8.6-10.3); Creatinine, Serum 1.87 mg/dL (0.51-0.95); Potassium 3.4 mmol/L (3.5-5.0); eGFR CKD-EPI 28.4 (>60)
[2024-10-18 10:14] LABS: ABS Eosinophils 0.1 10^3/uL (0.0-0.5); ABS Lymphocytes 1.2 10^3/uL (1.0-4.8); ABS Neutrophils 14.5 10^3/uL (1.5-7.6); ABS Nucleated RBC 0.01 10^3/ul; Anisocytosis 1+; Eosinophil % 0.9 %; Lymphocyte % 7.4 %; Nucleated Red Blood Cells % 0.1 %/100WBC (0.0-0.8); Polychromasia 1+
[2024-10-19 05:40] LABS: Hematocrit 24.7 % (35-45); Hemoglobin 7.9 g/dL (11.5-14.3); Mean Corpuscular Hemoglobin 29.3 pg (27-33); Mean Corpuscular Hgb Conc 31.9 g/dL (31-36); Mean Corpuscular Volume 91.8 fL (80-97); Mean Platelet Volume 8.2 fL (7.5-11.2); Platelet Count 288 10^3/uL (150-450); Red Cell Distribution Width 16.8 % (12-17); White Blood Count 18.3 10^3/uL (3.8-11.8)
[2024-10-19 06:07] LABS: Calcium 7.8 mg/dL (8.6-10.3); Creatinine, Serum 1.74 mg/dL (0.51-0.95); Potassium 3.9 mmol/L (3.5-5.0)
[2024-10-19 06:50] LABS: ABS Eosinophils 0.1 10^3/uL (0.0-0.5); ABS Lymphocytes 1.2 10^3/uL (1.0-4.8); ABS Monocytes 1.2 10^3/uL (0.0-0.9); ABS Neutrophils 15.8 10^3/uL (1.5-7.6); ABS Nucleated RBC 0.02 10^3/ul; Eosinophil % 0.7 %; Lymphocyte % 6.4 %; Nucleated Red Blood Cells % 0.1 %/100WBC (0.0-0.8); RBC Morphology Normal (Normal)
[2024-10-19 11:29] LABS: Urine Osmo 247 mOsm/kg (150-1150)
[2024-10-20 04:46] LABS: Hematocrit 23.5 % (35-45); Hemoglobin 7.7 g/dL (11.5-14.3); Mean Corpuscular Hemoglobin 30.6 pg (27-33); Mean Corpuscular Volume 92.8 fL (80-97); Mean Platelet Volume 7.7 fL (7.5-11.2); Platelet Count 295 10^3/uL (150-450); Red Blood Count 2.53 10^6/uL (3.63-4.92); Red Cell Distribution Width 16.8 % (12-17); White Blood Count 15.3 10^3/uL (3.8-11.8)
[2024-10-20 05:00] LABS: Calcium 7.9 mg/dL (8.6-10.3); Creatinine, Serum 1.51 mg/dL (0.51-0.95); Potassium 3.6 mmol/L (3.5-5.0); eGFR CKD-EPI 36.7 (>60)
[2024-10-20 05:03] LABS: ABS Basophils 0.1 10^3/uL (0.0-0.1); ABS Eosinophils 0.1 10^3/uL (0.0-0.5); ABS Lymphocytes 0.9 10^3/uL (1.0-4.8); ABS Monocytes 0.9 10^3/uL (0.0-0.9); ABS Neutrophils 13.3 10^3/uL (1.5-7.6); ABS Nucleated RBC 0.01 10^3/ul; Eosinophil % 0.6 %; Lymphocyte % 6.1 %
[2024-10-21 06:52] LABS: ABS Basophils 0.1 10^3/uL (0.0-0.1); ABS Eosinophils 0.1 10^3/uL (0.0-0.5); ABS Monocytes 0.7 10^3/uL (0.0-0.9); ABS Neutrophils 11.5 10^3/uL (1.5-7.6); ABS Nucleated RBC 0.01 10^3/ul; Hematocrit 26.1 % (35-45); Hemoglobin 8.5 g/dL (11.5-14.3); Lymphocyte % 7.2 %; Mean Corpuscular Hemoglobin 30.9 pg (27-33); Mean Corpuscular Hgb Conc 32.7 g/dL (31-36); Mean Corpuscular Volume 94.5 fL (80-97); Mean Platelet Volume 7.9 fL (7.5-11.2); Nucleated Red Blood Cells % 0.1 %/100WBC (0.0-0.8); Platelet Count 350 10^3/uL (150-450); Red Blood Count 2.76 10^6/uL (3.63-4.92); Red Cell Distribution Width 16.9 % (12-17); White Blood Count 13.3 10^3/uL (3.8-11.8)
[2024-10-21 07:07] LABS: Calcium 8.1 mg/dL (8.6-10.3); Creatinine, Serum 1.2 mg/dL (0.51-0.95); Potassium 3.8 mmol/L (3.5-5.0); eGFR CKD-EPI 48.4 (>60)
[2024-10-21 09:39] VITALS: BP 114/57
== END 2024-10-21 11:45 | DRG 673 ==
LOC: ED 15:18 → EDHOLD 20:40 → SUATTDRO 20:40 → ICU 21:38 → MEDTELE 10-10 16:40 → ICU 10-12 02:05 → MED 10-15 17:22
PROVIDERS: ADMIT Internal Medicine; ATTEND Internal Medicine

== ENCOUNTER 2024-10-21 10:35 | Inpatient (IN) ==
[2024-10-21] MEDS ORDERED: Senna TAB 8.6 mg TAB PO PRN (14:56)
[2024-10-21] MEDS: Albuterol HFA INHALER 8 gm MDI INH PRN (19:19)
[2024-10-22] MEDS: CMCS:FLUTICAS/UMECLI/VILANT 200-62.5-25 MDI (NF) INH SCH (08:24)
[2024-10-23 07:14] LABS: ALT 29 U/L (7-52); AST 32 U/L (13-39); Albumin 2.4 g/dL (3.2-5.2); Albumin/Globulin Ratio 1.4 (1-3); Alkaline Phosphatase 164 U/L (35-149); Anion Gap 11 mmol/L (2-16); Blood Urea Nitrogen 22 mg/dL (6-24); CO2 Carbon Dioxide 22 mmol/L (22-32); Calcium 7.5 mg/dL (8.6-10.3); Chloride 102 mmol/L (101-111); Creatinine, Serum 1.03 mg/dL (0.51-0.95); Globulin 1.7 g/dL (2-4); Glucose 93 mg/dL (70-100); Potassium 3.6 mmol/L (3.5-5.0); Sodium 135 mmol/L (135-145); Total Bilirubin 0.3 mg/dL (0.2-1.0); Total Protein 4.1 g/dL (6.4-8.9); eGFR CKD-EPI 58.1 (>60)
[2024-10-23 07:31] LABS: ABS Basophils 0.1 10^3/uL (0.0-0.1); ABS Eosinophils 0.1 10^3/uL (0.0-0.5); ABS Lymphocytes 0.8 10^3/uL (1.0-4.8); ABS Monocytes 0.5 10^3/uL (0.0-0.9); ABS Neutrophils 6.3 10^3/uL (1.5-7.6); Eosinophil % 0.9 %; Hematocrit 24.5 % (35-45); Hemoglobin 7.6 g/dL (11.5-14.3); Lymphocyte % 10.5 %; Mean Corpuscular Hemoglobin 30.6 pg (27-33); Mean Corpuscular Hgb Conc 31.2 g/dL (31-36); Mean Corpuscular Volume 98.3 fL (80-97); Mean Platelet Volume 7.4 fL (7.5-11.2); Platelet Count 325 10^3/uL (150-450); White Blood Count 7.7 10^3/uL (3.8-11.8)
[2024-10-23 09:35] LABS: .Transferrin 139 mg/dL (203-362); Total Iron Binding Capacity 195 mcg/dL (250-450)
[2024-10-23 12:00] LABS: % Iron Saturation 18 % (15-55); .Transferrin 148 mg/dL (203-362); Iron 37 ug/dL (50-212); Total Iron Binding Capacity 207 mcg/dL (250-450); Unsaturated Iron Binding 170 ug/dL
[2024-10-23] MEDS: Multivitamins/Minerals TAB PO SCH (12:05)
[2024-10-23 12:23] LABS: Ferritin 1089.6 ng/mL (11-307)
[2024-10-23 12:26] LABS: Folate 15.23 ng/mL (5.90-24.80)
[2024-10-23 12:27] LABS: Vitamin B12 > 1450 pg/mL (180-914)
[2024-10-23] MEDS: Cyanocobalamin INJ 1,000 MCG/ML VIAL 1 ML VIAL IM SCH (12:37)
[2024-10-23] MEDS: Lidocaine PATCH 5% PATCH TRANSDERM SCH (15:25)
[2024-10-24 05:46] LABS: ABS Basophils 0.1 10^3/uL (0.0-0.1); ABS Eosinophils 0.1 10^3/uL (0.0-0.5); ABS Lymphocytes 1.6 10^3/uL (1.0-4.8); ABS Monocytes 0.5 10^3/uL (0.0-0.9); ABS Neutrophils 5.6 10^3/uL (1.5-7.6); ABS Nucleated RBC 0.01 10^3/ul; Eosinophil % 1.5 %; Hematocrit 27.5 % (35-45); Hemoglobin 8.9 g/dL (11.5-14.3); Lymphocyte % 20.5 %; Mean Corpuscular Hgb Conc 32.3 g/dL (31-36); Mean Platelet Volume 7.5 fL (7.5-11.2); Nucleated Red Blood Cells % 0.1 %/100WBC (0.0-0.8); Platelet Count 385 10^3/uL (150-450); Red Blood Count 2.86 10^6/uL (3.63-4.92); Red Cell Distribution Width 17.5 % (12-17); White Blood Count 7.9 10^3/uL (3.8-11.8)
[2024-10-28 06:18] VITALS: BP 116/84
== END 2024-10-28 12:05 | disposition home or self-care (01) | DRG 91 ==
LOC: PMRU 12:06
PROVIDERS: ADMIT Physical Medicine & Rehabilitation; ATTEND Physical Medicine & Rehabilitation